=== PATIENT | female | born 1980 | race Caucasian/White ===

== ENCOUNTER 2017-07-30 14:32 | Emergency (ER) | payer OTHER, SELFPAY ==
[~2017-07-30] VITALS: Ht 167.6 cm; Wt 94.1 kg
[2017-07-30 14:33] VITALS: BP 156/95
[2017-07-30] MEDS ORDERED: valACYclovir HCL 500 MG TAB PO ONE (15:45)
[2017-07-30] MEDS ORDERED: VALT1TAB PO (15:45)
== END 2017-07-30 16:04 | disposition home or self-care (01) ==
LOC: M ED 14:32
DX: B00.9 Herpesviral infection, unspecified (principal)

== ENCOUNTER → 2018-03-21 | Outpatient (CLI) | payer OTHER | LOC: M WUC 15:21 | DX: M54.5 Low back pain (principal) | CPT/HCPCS: 72110 ==

== ENCOUNTER 2018-07-27 17:34 | Emergency (ER) | payer OTHER ==
[2018-07-27] MEDS: ADACEL/BOOSTRIX VACCINE (DIPHTH/PERTUSS/ACELL/TETANUS)0.5ML SYR (90715) IM (19:45)
[2018-07-27] MEDS: LIDOCAINE 1% MDV 20ML VIAL IM (19:45)
== END 2018-07-27 20:35 | disposition home or self-care (01) ==
LOC: M ED 17:34
DX: S61.411A Laceration without foreign body of right hand, initial encounter (principal); W22.8XXA Striking against or struck by other objects, initial encounter; Y92.59 Other trade areas as the place of occurrence of the external cause; Y99.0 Civilian activity done for income or pay; Z79.899 Other long term (current) drug therapy; F17.210 Nicotine dependence, cigarettes, uncomplicated
CPT/HCPCS: 90715

== ENCOUNTER 2018-08-19 18:43 | Emergency (ER) | payer OTHER | END 2018-08-19 20:10 | disposition home or self-care (01) | LOC: M ED 18:43 | DX: Z48.02 Encounter for removal of sutures (principal); F17.210 Nicotine dependence, cigarettes, uncomplicated | CPT/HCPCS: 99283 ==

== ENCOUNTER → 2020-04-25 | Outpatient (REF) | payer OTHER ==
[~2020-04-25] MED LIST: CYCL-707 PO; VALT1TAB PO
== END ==
LOC: M WUC 12:06
PROVIDERS: ATTEND Nurse Practitioner Family
DX: Z03.818 Encounter for observation for suspected exposure to other biological agents ruled out (principal); R68.83 Chills (without fever); Z11.59 Encounter for screening for other viral diseases
CPT/HCPCS: 87502; U0003